=== PATIENT | male | born 1995 | race Caucasian/White ===

== ENCOUNTER 2018-05-02 07:28 | Emergency (ER) | payer MEDICAID, OTHER ==
[2018-05-02] MEDS ORDERED: CLINDAMYCIN 150 MG CAP PO ONE (08:23)
[2018-05-02] MEDS ORDERED: DEXAMETHASONE 4 MG TAB PO ONE (08:23)
--- NOTE | 2018-05-02 08:26 | EDPHY ---
H & P Time Seen by Provider: 05/02/18 07:55 HPI/ROS: CHIEF COMPLAINT: Sore throat HISTORY OF PRESENT ILLNESS: This is a 22-year-old male who reports he has a history of multiple episodes of strep throat presents complaining of severe sore throat, slightly worse on the right side. He has had no fever. Reports pain with swallowing. Paucity of upper respiratory infection symptoms. He has been nauseous. No vomiting. No fever, chills, chest pain, shortness of breath, palpitations, vomiting, diarrhea, urinary complaints, headache, lightheadedness. REVIEW OF SYSTEMS: A comprehensive 10 system review of systems was reviewed and is otherwise negative aside from elements mentioned in the history of present illness and medical decision making. PAST MEDICAL HISTORY: Strep throat. SOCIAL HISTORY: Student. Nonsmoker. Rare alcohol use. VITAL SIGNS: see nurse's notes. GENERAL: Well-developed, well-nourished, in no acute distress. HEENT: Atraumatic Eyes: PERRL, EOMI, no conjunctival injection. Ears: TM clear bilaterally. Nose: No discharge. Mouth: moist mucous membranes. Pharynx: Bilaterally enlarged erythematous tonsils with purulence. Posterior pharyngeal purulence. Uvula is midline. No abscess noted. NECK: Supple, no adenopathy, no meningismus, no tenderness. Negative Kernig's and Brudzinski's. LUNGS: Clear to auscultation bilaterally, no wheezes, rhonchi or rales. CARDIAC: Regular rate and rhythm, no rubs, murmurs or gallops. ABDOMEN: Soft, nontender, bowel sounds normal. BACK: No CVA tenderness. EXTREMITIES: Normal, no edema, FROM. NEURO: Alert and oriented, grossly nonfocal. SKIN: Warm and dry, no rash. PSYCHIATRIC: Normal mentation, no agitation. Smoking Status: Never smoked Constitutional: Initial Vital Signs Temperature (C) 36.9 C 05/02/18 07:33 Heart Rate 110 H 05/02/18 07:33 Respiratory Rate 16 05/02/18 07:33 Blood Pressure 137/92 H 05/02/18 07:33 O2 Sat (%) 97 05/02/18 07:33 O2 Delivery Mode Room Air Allergies/Adverse Reactions: No Known Allergies Allergy (Unverified 05/02/18 07:38) Home Medications: Medication Instructions Recorded Adderall 10 MG (*) 05/02/18 Clindamycin HCl [Clindamycin] 300 mg PO TID #30 cap 05/02/18 Medical Decision Making ED Course/Re-evaluation: Rapid strep is negative. Given the significant amount of discharge and complaints of unilateral discomfort, patient was placed on clindamycin to prevent the development of an abscess. He received Decadron 8 mg. Please see the discharge instructions regarding symptomatic care. Patient drink fluids well in the emergency department in his heart rate trended downward and was 78 on discharge. Differential Diagnosis: Differential diagnosis for the patient's sore throat was considered including but not limited to viral pharyngitis, bacterial pharyngitis, tonsillitis, tonsillar abscess, peritonsillar abscess, foreign body, epiglottitis, bacterial tracheitis. - Data Points Medications Given: Discontinued Medications Clindamycin (Clindamycin) 300 mg PO EDNOW ONE PRN Reason: Protocol Stop: 05/02/18 08:24 Last Admin: 05/02/18 08:34 Dose: 300 mg Dexamethasone (Decadron) 8 mg PO EDNOW ONE Stop: 05/02/18 08:24 Last Admin: 05/02/18 08:34 Dose: 8 mg Point of Care Test Results: Strep Strep Throat Swab Collection 05/02/18 Date Strep Throat Swab Swab 07:45 Collection Time Strep Result Not Detected Departure - Departure Disposition: Home, Routine, Self-Care Clinical Impression: Tonsillitis with exudate Pharyngitis Qualifiers: Pharyngitis/tonsillitis etiology: unspecified etiology Qualified Code(s): J02.9 - Acute pharyngitis, unspecified Condition: Good Instructions: Pharyngitis (ED), Tonsillitis (ED) Additional Instructions: Your rapid strep screen is negative. If your strep DNA test returns positive, you will be contacted but the antibiotics I have given you will treat the strep throat. Please take antibiotics as directed. For your sore throat, I suggest ibuprofen 400-600 mg every 6-8 hours to help with pain and swelling. You may also use Tylenol 650 mg every 4-6 hours. These can be taken at the same time. Salt water gargles and throat lozengers will also be helpful. Drink plenty of water. Get plenty of rest. The single dose of Decadron which we gave you will also help with the inflammation and pain in the throat. Please follow up with [facility] as directed below for further evaluation of the lymph node. Referrals: Gabriel Foy MD [Medical Doctor] - As per Instructions Prescriptions: Clindamycin HCl [Clindamycin] 300 mg PO TID #30 cap
[2018-05-02 09:10] VITALS: BP 140/90
== END 2018-05-02 09:05 | disposition home or self-care (01) ==
LOC: CED 07:28
DX: J02.9 Acute pharyngitis, unspecified (principal)